=== PATIENT | female | born 1970 | race Caucasian/White ===

== ENCOUNTER → 2016-12-17 | Outpatient (CLI) | payer OTHER ==
[2016-05-05 11:29] VITALS: BP 106/64
[~2016-12-17] MED LIST: ASPI-482 PO; ATORVASTATIN CA80 MG PO; FURO20TA3 PO; GABA-586 PO; GLIM2TAB2 PO; INSU100I13 SQ; INSU200I SQ; LISI40TA PO; METF500T PO; METO5TAB PO; MULT1TAB52 PO; PROAIR HFA8.5 GM INH; SPIR25TA3 PO
== END | disposition home or self-care (01) ==
LOC: PF 08:45
PROVIDERS: ATTEND Internal Medicine Critical Care Medicine
DX: R06.00 Dyspnea, unspecified (principal)
CPT/HCPCS: 94010; 94729

== ENCOUNTER → 2017-02-02 | Outpatient (CLI) | payer OTHER ==
[2016-05-05 11:29] VITALS: BP 106/64
--- NOTE | 2017-02-03 19:08 | SLEEP ---
DATE OF STUDY: 02/02/2017 ATTENDING PHYSICIAN: Dr. Jared Moody. This patient is a 46-year-old, who weighs 252 pounds with a BMI of 42. The patient's [place] score was 2. Split night study was performed at [facility]. During the night study, the patient spent 459 minutes in bed and slept for 373 minutes with a sleep efficiency of 81%. Sleep latency was 32 minutes with a REM latency of 201 minutes. Overall, sleep architecture showed increased stage I sleep, normal stage II sleep, normal slow wave and normal REM sleep. During the initial diagnostic portion of the study, the patient slept for 128 minutes. During that time, the patient had 164 obstructive apneas, 28 hypopneas, 1, mixed, and 1 central apneas. The patient's apnea-hypopnea index was 91 per hour. Supine index of zero per hour and no REM sleep was seen during the diagnostic portion. Review of nocturnal oximetry study revealed a mean oxygen saturation of 94% with the lowest of 80%. 20% of time oxygen saturation remained between 80% and 89%. EKG monitoring revealed normal sinus rhythm. Average heart rate was 78 beats per minute. PLMs were not seen. The patient met the criteria for CPAP initiation. It was started at 5 cm water and titrated up to 12 cm of water. At the final pressure, the patient had supine as well as REM sleep. The patient slept for 61 minutes and the AHI was reduced to 2 per hour and oxygen saturation remained above 93%. The patient used small sized nasal pillows. IMPRESSION: 1. Severe sleep apnea-hypopnea syndrome with an AHI of 91 per hour. 2. Nocturnal hypoxia secondary to obstructive sleep apnea, but resolved with CPAP. 3. No PLMS seen. RECOMMENDATIONS: 1. CPAP at 12 cm of water completely eliminated patient's sleep apnea, and should be used on a nightly basis. 2. Follow up in 4-6 weeks to assess compliance with CPAP and to document clinical improvement. 3. Weight loss is advised. 4. Avoid [employer] depressants. 5. Caution regarding driving until symptoms of sleep apnea resolve with the use of CPAP. LAZARO ABRAMS MD DR: RISHABH/michele JOB#: [id number] / [id number] FRANKY Mcintyre MD
== END | disposition home or self-care (01) ==
LOC: SLPLAB 18:05
PROVIDERS: ATTEND Internal Medicine Critical Care Medicine
DX: G47.33 Obstructive sleep apnea (adult) (pediatric) (principal)
CPT/HCPCS: 95810